=== PATIENT | female | born 1990 | race Caucasian/White ===

== ENCOUNTER → 2016-08-21 | Outpatient (CLI) | payer BC ==
[~2016-08-21] VITALS: Ht 172.7 cm; Wt 98.1 kg
[~2016-08-21] MED LIST: ASPIRIN81 M2 PO; DOCUSATE SODIU100 MG PO; ENDOCET 5-3251 EACH PO; IBUPROFEN800 MG PO; LO-DOSE ASPIRIN81 M1 PO; PRENATAL TABLE1 EAC3 PO; VALTREX50 MG/ML PO
[2016-08-21 09:40] VITALS: BP 128/70
== END | disposition home or self-care (01) ==
LOC: IVINF 09:29
DX: O36.0990 Maternal care for other rhesus isoimmunization, unspecified trimester, not applicable or unspecified (principal); O03.9 Complete or unspecified spontaneous abortion without complication; Z3A.00 Weeks of gestation of pregnancy not specified; Z67.11 Type A blood, Rh negative
CPT/HCPCS: 96372; J2790

== ENCOUNTER → 2018-02-01 | Outpatient (CLI) | payer OTHER ==
[~2018-02-01] VITALS: Ht 172.7 cm; Wt 116.2 kg
[~2018-02-01] MED LIST changes: +CYMBALTA60 MG PO; +PRENATAL TABLE1 EACH PO; +[UNRECOGNIZED DRUG - CODE] PO
[2018-02-01 11:10] VITALS: BP 146/82
== END | disposition home or self-care (01) ==
LOC: IVINF 11:00
DX: Z34.83 Encounter for supervision of other normal pregnancy, third trimester (principal); Z31.82 Encounter for Rh incompatibility status; Z3A.28 28 weeks gestation of pregnancy; Z67.11 Type A blood, Rh negative
CPT/HCPCS: 96372; J2790

== ENCOUNTER 2018-03-22 14:42 | Outpatient (CLI) | payer OTHER ==
[~2018-03-22] VITALS: Ht 172.7 cm; Wt 123.0 kg
[2018-03-22] MEDS ORDERED: VALTREX1000 MG PO (15:20)
[2018-03-22 15:23] VITALS: BP 128/74
[2018-03-22 15:41] VITALS: BP 117/62
[2018-03-22 15:46] LABS: BASOPHIL (%) 0.2 % (0-1); EOSINOPHIL (%) 0.7 % (0-5); EOSINOPHIL COUNT 0.1 K/uL (0-0.3); HEMATOCRIT 33.4 % (36.0-46.0); HEMOGLOBIN 11.6 G/DL (11.9-15.5); IMMATURE GRANULOCYTE (%) 1.1 % (0.0-0.7); LYMPHOCYTE (%) 14.6 % (15-42); LYMPHOCYTE COUNT 1.7 K/uL (1.0-2.8); MCH 30.1 PG (29.0-34.0); MCHC 34.7 G/DL (30.0-36.0); MCV 86.5 FL (83-99); MONOCYTE (%) 6.8 % (3-12); MONOCYTE COUNT 0.8 K/uL (0-0.8); NEUTROPHIL (%) 76.6 % (45-76); NEUTROPHIL COUNT 8.6 K/uL (1.8-6.4); NRBC (%) 0.2 /100 WBC (0-0); PLATELET COUNT 170 K/uL (156-360); RBC DIS.WIDTH-CV 14.3 % (11.8-14.6); RBC DIS.WIDTH-SD 44.3 % (39-53); RED BLOOD COUNT 3.86 M/uL (3.80-5.20); WHITE BLOOD COUNT 11.3 K/uL (4.1-10.2)
[2018-03-22 15:55] VITALS: BP 124/62
[2018-03-22 15:57] LABS: CHLORIDE 107 mEq/L (99-109); POTASSIUM 4.1 mEq/L (3.7-5.4); SODIUM 136 mEq/L (136-147)
[2018-03-22 15:59] LABS: GLUCOSE 105 mg/dL (70-99); TOTAL PROTEIN 5.7 g/dL (6.4-8.3)
[2018-03-22 16:01] LABS: TOTAL BILIRUBIN 0.3 mg/dL (0.0-1.0)
[2018-03-22 16:03] LABS: ALKALINE PHOSPHATASE 80 IU/L (3-129); CREATININE 0.7 mg/dL (0.6-1.3); GFR ESTIMATE (CALCULATED) > 59 mL/min/
[2018-03-22 16:04] LABS: UREA NITROGEN (BUN) 8 mg/dL (9-23)
[2018-03-22 16:05] LABS: AST (GOT) 18 IU/L (2-34)
[2018-03-22 16:06] LABS: ALT (GPT) 16 IU/L (3-49)
[2018-03-22 16:11] VITALS: BP 120/69
== END 2018-03-22 16:25 | disposition home or self-care (01) ==
LOC: LDRP-OP 14:42 → 2WEST 14:43 → LDRP-OP 05-21 13:21
PROVIDERS: Obstetrics & Gynecology
DX: O26.893 Other specified pregnancy related conditions, third trimester (principal); R51 Headache; R03.0 Elevated blood-pressure reading, without diagnosis of hypertension; O14.03 Mild to moderate pre-eclampsia, third trimester; O99.343 Other mental disorders complicating pregnancy, third trimester; O34.219 Maternal care for unspecified type scar from previous cesarean delivery; Z3A.36 36 weeks gestation of pregnancy; F41.9 Anxiety disorder, unspecified
CPT/HCPCS: 59025; 80053; 82570; 84156; 85025; G0378